=== PATIENT | female | born 1980 | race Caucasian/White ===

== ENCOUNTER 2018-11-29 13:47 | Emergency (ER) | payer BC ==
[~2018-11-29] VITALS: Ht 149.9 cm; Wt 72.1 kg
[2018-11-29 13:51] VITALS: Ht 149.9 cm; Wt 72.1 kg
[2018-11-29 15:05] LABS: UA SPECIFIC GRAVITY >=1.030 (1.005-1.035); microscopic required? YES; urine erythrocyte 3+ (NEGATIVE)
[2018-11-29 15:18] VITALS: BP 109/58
== END 2018-11-29 16:04 | disposition home or self-care (01) ==
LOC: ED 13:47
PROVIDERS: Specialist
DX: N20.0 Calculus of kidney (principal)
CPT/HCPCS: J1885; Q0162

== ENCOUNTER 2019-02-08 23:39 | Emergency (ER) | payer MEDICAID ==
[~2019-02-08] VITALS: Ht 154.9 cm; Wt 72.6 kg
[2019-02-08 23:49] VITALS: Ht 154.9 cm; Wt 72.6 kg
[2019-02-09 00:27] LABS: BASOPHIL % 0.9 % (0-2); PLATELET COUNT 280 x10^3mcL (130-400); RED CELL DISTRIBUTION WIDTH 14.1 % (11.5-14.5)
[2019-02-09 00:32] LABS: CALCIUM 8.6 mg/dL (8.5-10.1); CARBON DIOXIDE 26.3 mmol/L (21-32); CHLORIDE SERUM 105 mmol/L (98-107); CREATININE SERUM 0.9 mg/dL (0.6-1.0); GFR1 > 60 mL/min; GLUCOSE SERUM 104 mg/dL (74-106); POTASSIUM SERUM 3.7 mmol/L (3.5-5.1); SODIUM SERUM 138 mmol/L (136-145)
[2019-02-09 00:37] LABS: ALBUMIN 3.6 g/dL (3.4-5.0); ALKALINE PHOSPHATASE 74 U/L (46-116); ALT/SGPT 26 U/L (14-59); AST/SGOT 19 U/L (15-37); BILIRUBIN TOTAL 0.1 mg/dL (0.20-1.00); TOTAL PROTEIN, SERUM 7.6 g/dL (6.4-8.2)
[2019-02-09 01:58] VITALS: BP 126/76
== END 2019-02-09 01:58 | disposition home or self-care (01) ==
LOC: ED 23:39
PROVIDERS: Emergency Medicine
DX: M54.5 Low back pain (principal); R11.0 Nausea
CPT/HCPCS: J1885; J2405; J3010; J7030